=== PATIENT | female | born 1985 | race Caucasian/White ===

== ENCOUNTER 2019-10-28 12:09 | Emergency (ER) | payer OTHER ==
[~2019-10-28] VITALS: Ht 157.5 cm; Wt 68.0 kg
[2019-10-28 12:40] VITALS: BP 100/45
--- NOTE | 2019-10-28 13:32 | NUR ---
Patient discharged to home in stable condition. Written and verbal after care instructions given. Patient verbalizes understanding of instruction.
== END 2019-10-28 13:33 | disposition home or self-care (01) ==
LOC: ER 12:13
DX: S16.1XXA Strain of muscle, fascia and tendon at neck level, initial encounter (principal); S39.012A Strain of muscle, fascia and tendon of lower back, initial encounter; V49.49XA Driver injured in collision with other motor vehicles in traffic accident, initial encounter; Y93.89 Activity, other specified; Y92.413 State road as the place of occurrence of the external cause; Y99.8 Other external cause status